=== PATIENT | female | born 1945 | race Caucasian/White ===

== ENCOUNTER 2021-04-13 15:54 | Inpatient (IN) | payer OTHER ==
[~2021-04-13] VITALS: Ht 154.9 cm; Wt 67.0 kg
[2021-04-13 16:01] VITALS: BP 137/74
[2021-04-13] MEDS ORDERED: LISINOPRIL5 MG (16:04)
[2021-04-13] MEDS ORDERED: STEGLATRO15 MG (16:05)
[2021-04-13] MEDS ORDERED: SIMVASTATIN80 MG (16:05)
[2021-04-13 17:06] LABS: HEMATOCRIT 34.9 % (37.0-47.0); HEMOGLOBIN 11.6 gm/dL (12.0-15.0); MCH 29.1 pg (26.0-34.0); MCHC 33.4 g/dL (28.0-37.0); MCV 87.4 fL (80.0-100.0); MPV 7.1 fl. (7.2-11.1); NUCLEATED RBCS 0 /100WBC; PLATELET COUNT* 631 thou/uL (150-400); RBC 3.99 mil/uL (4.20-5.00); RDW-CV 14.7 % (10.5-14.5); WBC 14.4 thou/uL (4.0-11.0)
[2021-04-13 17:13] LABS: CALCIUM 9.8 mg/dL (8.5-10.1); POTASSIUM 4.5 mmol/L (3.5-5.1)
[2021-04-13 17:20] LABS: BE -7.5 mmol/L (-2 to +3); PCO2 29.1 mmHg (35.0-45.0); pH 7.369 (7.340-7.450)
[2021-04-13 17:25] LABS: ALBUMIN 2.5 g/dL (3.4-5.0); TOTAL BILIRUBIN 0.3 mg/dL (<0.1-1.0); TOTAL PROTEIN 7.7 g/dL (6.4-8.2)
[2021-04-13 17:36] LABS: ABSOLUTE MONOCYTES 1.2 thou/uL (0.0-1.2); ABSOLUTE NEUTROPHILS 12.2 thou/uL (1.6-8.1); PLATELET ESTIMATE ADEQUATE
[2021-04-13 20:40] VITALS: BP 116/77
[2021-04-13 20:51] VITALS: BP 120/63
[2021-04-14 00:06] VITALS: BP 118/62
[2021-04-14 03:22] VITALS: BP 164/78
[2021-04-14 04:13] LABS: HEMATOCRIT 34.3 % (37.0-47.0); HEMOGLOBIN 10.9 gm/dL (12.0-15.0); MCH 28.4 pg (26.0-34.0); MCHC 31.9 g/dL (28.0-37.0); MCV 89.1 fL (80.0-100.0); MPV 7.4 fl. (7.2-11.1); RBC 3.85 mil/uL (4.20-5.00); RDW-CV 14.9 % (10.5-14.5); WBC 14.2 thou/uL (4.0-11.0)
[2021-04-14 04:26] LABS: CALCIUM 9.3 mg/dL (8.5-10.1); POTASSIUM 4.6 mmol/L (3.5-5.1)
[2021-04-14 04:30] LABS: MAGNESIUM 2.5 mg/dL (1.8-2.4); PHOSPHORUS* 4.4 mg/dL (2.5-4.9)
--- NOTE | 2021-04-14 04:58 | NUR ---
ADMIT TO ROOM 230 AT 2039. INITAL HR 150S. O2 PLACED AT 2 LITERS NC. HR DOWN TO 101, O2 SAT 90S. MED REQ IN. IVF ORDERED FOR PT. DR YEPEZ NOTIFIED OF ABOVE. ORDER TO DC IVF. JUST PRIOR TO 299. PT HAD SEVERAL EPISOIDS WHER HR WENT UP TO 150S. UPON CHECKING PT SHE WAS SITTING STRAIGHT UP IN BED. RR 38. PT STATED I CAN'T BREATH. O2 SAT 86% ON 2 LITERS. PT DIAPHORETIC AND COOL. DR YEPEZ NOTIFIED. LASIX ORDERED AND GIVEN. PT CONTINUED TO WORSEN. RAPID CALLED. DASILVA PLACED ANOTHER DOSE OF LASIX GIVEN. BIPAP PLACED ON PT. FINAL O2 AT 60% WITH 35 LITERS PER MINUTE. GOOD RESPONSE WITH LASIX. PT RESTING COMFORTABLY ON BIPAP. HR NOW 96 BPM. ORDER FOR THOROCENTESIS IN IR TODAY.
--- NOTE | 2021-04-14 07:10 | NUR ---
CHANGE OF SHIFT BEDSIDE REPORT GIVEN PATIENT SEEN AT BEDSIDE, IN BED RESTING ASSUMED PATIENT CARE
[2021-04-14 08:00] VITALS: BP 92/54
[2021-04-14 08:34] LABS: APTT 26.2 Seconds (25.0-31.3); INR 1.1; PROTIME 11.5 Seconds (9.20-11.50)
[2021-04-14 12:00] VITALS: BP 104/44
[2021-04-14 15:37] VITALS: BP 110/55
[2021-04-14 17:23] LABS: TOTAL PROTEIN 7.1 g/dL (6.4-8.2)
[2021-04-14 17:29] LABS: BF RBC 12285 /mm3; TOTAL CELL COUNT 4991 /mm3
[2021-04-14 17:54] LABS: CLARITY HAZY; TOTAL VOLUME 1560 ml
[2021-04-14 18:09] LABS: BF LYMPHOCYTES 28 %; BF POLYS 72 %; BF TISSUE 14 /100 WBC
[2021-04-14 18:11] LABS: SOURCE THORACENTESIS
[2021-04-14 20:00] VITALS: BP 123/73
[2021-04-15] VITALS (7 sets, daily range): BP systolic 90–130; BP diastolic 53–73
[2021-04-15 05:17] LABS: HEMATOCRIT 28.1 % (37.0-47.0); HEMOGLOBIN 9.4 gm/dL (12.0-15.0); MCH 29.1 pg (26.0-34.0); MCHC 33.4 g/dL (28.0-37.0); MCV 87.2 fL (80.0-100.0); MPV 7.2 fl. (7.2-11.1); RBC 3.22 mil/uL (4.20-5.00); RDW-CV 14.7 % (10.5-14.5); WBC 6.4 thou/uL (4.0-11.0)
[2021-04-15 05:22] LABS: CALCIUM 8.3 mg/dL (8.5-10.1); CREATININE 0.7 mg/dL (0.6-1.3); POTASSIUM 3.5 mmol/L (3.5-5.1)
--- NOTE | 2021-04-15 07:15 | NUR ---
CHANGE OF SHIFT BEDSIDE REPORT GIVEN PATIENT SEEN AT BEDSIDE, IN BED RESTING ASSUMED PATIENT CARE
--- NOTE | 2021-04-15 11:43 | EKG ---
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
--- NOTE | 2021-04-15 11:45 | EKG ---
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 : 1945 Requested By: Clarence Saba Order Number: [id number] Reading MD: Lamont Bell Measurements Intervals [place] Rate: 103 P: 20 AL: 149 QRS: -15 QRSD: 97 T: 31 QT: 342 QTc: 448 Interpretive Statements Sinus tachycardia Borderline left axis deviation Delayed R wave progression Compared to ECG 04/13/2021 17:06:19 No significant changes noted Electronically Signed On 04-15-2021 11:45:16 CDT by Lamont Bell [email or web address] <ELECTRONICALLY SIGNED> By: Lamont Bell MD, FACC 04/15/21 1145 08 08 Lamont Bell MD, [facility] /EPI
--- NOTE | 2021-04-15 20:00 | NUR ---
RECEIVED REPORT AND ASSUMED CARE OF PT, ASSESSMENT COMPLETED. STATES FEELING MUCH BETTER. PT PLEASANT, DYSPNEA WITH CONSERVATION. O2 ON AT 4L/NC, HOB ELEVATED. TELEMETRY ON SHOWING ST. WILL CONT TO MONITOR AND ASSIST NEEDED.
[2021-04-16 04:10] VITALS: BP 99/66
[2021-04-16 04:55] LABS: HEMATOCRIT 30.3 % (37.0-47.0); MCH 28.5 pg (26.0-34.0); MCHC 32.9 g/dL (28.0-37.0); MCV 86.7 fL (80.0-100.0); MPV 7.1 fl. (7.2-11.1); RBC 3.5 mil/uL (4.20-5.00); RDW-CV 14.4 % (10.5-14.5)
[2021-04-16 05:07] LABS: CALCIUM 8.9 mg/dL (8.5-10.1); CREATININE 0.7 mg/dL (0.6-1.3); POTASSIUM 3.9 mmol/L (3.5-5.1)
--- NOTE | 2021-04-16 06:00 | NUR ---
SLEPT WELL TONIGHT. MOVING SELF IN BED FOR COMFORT. OCC NON-PROD COUGH. HOB ELEVATED, O2 ON. TELEMETRY SHOWING SR WHEN SLEEPING. NO CHANGE IN ASSESSMENT. HS GOALS OF REST AND SAFETY ACHIEVED. HOURLY ROUNDING OBSERVED.
[2021-04-16 08:00] VITALS: BP 129/72
[2021-04-16 12:00] VITALS: BP 124/61
--- NOTE | 2021-04-16 12:49 | NUR ---
CM ASSESSMENT: PT A&O, INDEPENDENT WITH ADL'S, ACTIVE AND DRIVES. PT RESIDES AT HOME ALONE. PT HAS BEEN USING A CANE FOR MOBILITY RECENTLY DUE TO WEAKNESS, BUT NORMALLY DOES NOT USE ANY DME. PT DOES NOT HAVE HOME OXYGEN. PT HAS 0 HX OF HH OR SNF. PT MAY NEED HOME OXYGEN AT D/C SHE IS CURRENTLY ON 4L O2, AND MAY ALSO BENEFIT FROM HH. CM WILL REMAIN AVAILABLE TO ASSIST AND FOLLOW NEEDED.
[2021-04-16 13:07] LABS: BODY FLUID LDH 175 IU/L (())
[2021-04-16 16:00] VITALS: BP 126/66
[2021-04-16 16:06] LABS: BODY FLUID PH 7.5 (Not Estab.)
[2021-04-16 20:00] VITALS: BP 111/69
--- NOTE | 2021-04-16 20:00 | NUR ---
RECEIVED REPORT AND ASSUMED CARE OF PT, ASSESSMENT COMPLETED. O2 ON AT 4L/NC, DISCUSSED WEANING DOWN TO ADVANCE TOWARDS DISCHARGE, VERY ANXIOUS ABOUT THIS. DISCUSSED DR PLAN OF DIURESING AND RECHECK CT. TELEMETRY ON SHOWING ST. WILL CONT TO MONITOR AND ASSIST NEEDED.
[2021-04-17] VITALS (7 sets, daily range): BP systolic 100–122; BP diastolic 52–68
[2021-04-17 04:39] LABS: ABSOLUTE BASOPHILS 0.1 thou/uL (0.0-0.2); ABSOLUTE EOSINOPHILS 0.1 thou/uL (0.0-0.7); ABSOLUTE LYMPHOCYTES 1.3 thou/uL (0.8-5.3); ABSOLUTE MONOCYTES 0.5 thou/uL (0.0-1.2); BASOPHILS 1.3 %; EOSINOPHILS 1.4 %; HEMATOCRIT 31.8 % (37.0-47.0); HEMOGLOBIN 10.4 gm/dL (12.0-15.0); LYMPHOCYTES 21.9 %; MCH 28.4 pg (26.0-34.0); MCHC 32.6 g/dL (28.0-37.0); MCV 87.4 fL (80.0-100.0); MONOCYTES 8.1 %; MPV 7.2 fl. (7.2-11.1); NUCLEATED RBCS 0 /100WBC; PLATELET COUNT* 509 thou/uL (150-400); POLYS 67.3 %; RBC 3.64 mil/uL (4.20-5.00); WBC 5.9 thou/uL (4.0-11.0)
[2021-04-17 05:01] LABS: CALCIUM 9.1 mg/dL (8.5-10.1); CREATININE 0.7 mg/dL (0.6-1.3); MAGNESIUM 2.5 mg/dL (1.8-2.4); POTASSIUM 3.8 mmol/L (3.5-5.1); TOTAL BILIRUBIN 0.1 mg/dL (<0.1-1.0); TOTAL PROTEIN 6.9 g/dL (6.4-8.2)
--- NOTE | 2021-04-17 06:21 | NUR ---
DIFFICULTY KEEPING BIPAP ON TONIGHT BUT DID WELL WITH IT WHEN SLEEPING. O2 DECREASED TO 28% THEN WHEN ON NC 2L. NO SOA NOTED OR RESTLESSNESS. TELEMETRY CONT TO SHOW SR. NO CHANGE IN ASSESSMENT. HS GOALS OF REST AND SAFETY ACHIEVED. HOURLY ROUNDING OBSERVED.
--- NOTE | 2021-04-17 07:25 | NUR ---
CHANGE OF SHIFT BEDSIDE REPORT GIVEN PATIENT SEEN AT BEDSIDE, IN BED RESTING ASSUMED PATIEWNT CARE
--- NOTE | 2021-04-17 13:10 | 2DMMODE ---
[place] [address] 2 D/M-MODE ECHOCARDIOGRAM Name: SWATHI VALDES Room: [address] IN [facility]#: [id number] Admission: 04/13/21 Attend Phys: Clarence Saba Discharge: Date of : 45 Date of Service: 04/16/21 1303 Report #: [id number] THIS REPORT FOR: cc: Liz Angelo MD, Katrina MD Holkins, John M. MD [facility] ~ APPROVED REPORT Study performed: 04/16/2021 11:11:30 EXAM: Comprehensive 2D, Doppler, and color-flow Echocardiogram Patient Location: In-Patient Room #: [facility] Status: routine BSA: 1.73 HR: 91 bpm BP: 99/66 mmHg Rhythm: NSR Other Information Study Quality: Good Indications Pericardial Effusion 2D Dimensions IVSd: 8.76 (7-11mm) LVOT Diam: 19.35 (18-24mm) LVDd: 38.19 mm PWd: 8.82 (7-11mm) Ascending Ao: 32.67 (22-36mm) LVDs: 25.69 (25-40mm) Aortic Root: 28.77 mm Volumes Left Atrial Volume (Systole) LA ESV Index: 25.10 mL/m2 Aortic Valve AoV Peak Lazaro.: 1.42 m/s AO Peak Gr.: 8.04 mmHg LVOT Max P.22 mmHg AO Mean Gr.: 4.62 mmHg LVOT Mean P.28 mmHg LVOT Max V: 1.25 m/s AO V2 VTI: 22.72 cm LVOT Mean V: 0.67 m/s HILLARY (VTI): 2.87 cm2 LVOT V1 VTI: 22.16 [place] [address] 2 D/M-MODE ECHOCARDIOGRAM Name: SWATHI VALDES Room: [address] IN ..#: [id number] Admission: 04/13/21 Attend Phys: Clarence Saba Discharge: Date of : 45 Date of Service: 04/16/21 1303 Report #: [id number] Mitral Valve E/A Ratio: 1.11 MV Decel. Time: 155.40 ms MV E Max Lazaro.: 0.92 m/s MV PHT: 45.06 ms MVA (PHT): 4.88 cm2 TDI E/Lateral E': 10.22 E/Medial E': 8.36 Medial E' Lazaro.: 0.11 m/s Lateral E' Lazaro.: 0.09 m/s Pulmonary Valve PV Peak Lazaro.: 0.87 m/s PV Peak Gr.: 3.03 mmHg Tricuspid Valve RAP Estimate: 5.00 mmHg TR Peak Gr.: 23.50 mmHg RVSP: 28.00 mmHg PA Pressure: 28.00 mmHg Left Ventricle The left ventricle is normal size. There is normal LV segmental wall motion. There is normal left ventricular wall thickness. Left ventricular systolic function is normal. The left ventricular ejection fraction is within the normal range. LVEF is 65%. Grade I - abnormal relaxation pattern. Right Ventricle The right ventricle is normal size. The right ventricular systolic function is normal. Atria The left atrium size is normal. The right atrium size is normal. Aortic Valve Mild aortic valve sclerosis. No aortic regurgitation is present. There is no aortic valvular stenosis. Mitral Valve The mitral valve is normal in structure. Trace mitral regurgitation. No evidence of mitral valve stenosis. Tricuspid Valve The tricuspid valve is normal in structure. Mild tricuspid regurgitation. [place] [address] 2 D/M-MODE ECHOCARDIOGRAM Name: SWATHI VALDES Room: [address] IN [facility]#: [id number] Admission: 04/13/21 Attend Phys: Clarence Saba Discharge: Date of : 45 Date of Service: 04/16/21 1303 Report #: [id number] Pulmonic Valve The pulmonary valve is normal in structure. Trace pulmonic regurgitation. Great Vessels The aortic root is normal in size. IVC is normal in size and collapses >50% with inspiration. Pericardium There is no pericardial effusion. <Conclusion> The left ventricle is normal size. There is normal left ventricular wall thickness. Left ventricular systolic function is normal. The left ventricular ejection fraction is within the normal range. LVEF is 65%. Grade I - abnormal relaxation pattern. The right ventricle is normal size. The left atrium size is normal. Mild aortic valve sclerosis. No aortic regurgitation is present. There is no aortic valvular stenosis. The mitral valve is normal in structure. Trace mitral regurgitation. The tricuspid valve is normal in structure. Mild tricuspid regurgitation. No pulmonary hypertension. IVC is normal in size and collapses >50% with inspiration. There is no pericardial effusion. There is normal LV segmental wall motion. <ELECTRONICALLY SIGNED> By: Julio Mckeon MD, FACC 04/16/21 1303 130 1303 Julio Mckeon MD, FACC /INF
--- NOTE | 2021-04-17 13:47 | NUR ---
PLAN OF CARE: PHYSICIAN INFORMS OF PLAN FOR PT TO REMAIN INPT FOR 24-48 ADDITIONAL HRS. PT REMAINS TELE STATUS, AND ON 4L O2. PT/OT EVALS PENDING, AND WILL ASSIST IN DETERMINING PT'S MOBILITY AND D/C PLANNING NEEDS. AT THIS TIME IT APPEARS IF PT MAY BENEFIT FROM HH AT D/C. PT MAY ALSO NEED HOME OXYGEN SHE DID NOT HAVE ANY PRIOR TO ADMIT. CM WILL REMAIN AVAILABLE TO ASSIST AND FOLLOW NEEDED.
[2021-04-17 15:07] LABS: CALCIUM 8.9 mg/dL (8.5-10.1); CREATININE 0.8 mg/dL (0.6-1.3); POTASSIUM 4.2 mmol/L (3.5-5.1)
[2021-04-17 16:45] LABS: BF RBC 18312 /mm3; TOTAL CELL COUNT 2466 /mm3
[2021-04-17 16:48] LABS: TOTAL VOLUME 750 ml
[2021-04-17 16:49] LABS: CLARITY HAZY
[2021-04-17 17:44] LABS: BF LYMPHOCYTES 43 %; BF MONOCYTES 2 %; BF POLYS 55 %; BF TISSUE 28 /100 WBC
[2021-04-17 17:46] LABS: SOURCE PLEURAL FLUID
--- NOTE | 2021-04-18 02:35 | NUR ---
PT ALERT ORIENTED. UP TO BR WITH CANE AND ASSIST OF ONE. RN LPN LVN TRACING SR/ST. INITALLY ON RA. MN O2 SAT 85% O2 ON AT 2 LITERS NC. CURRENTLY SATING 95%
[2021-04-18 04:00] VITALS: BP 90/53
[2021-04-18 04:14] LABS: ABSOLUTE BASOPHILS 0.1 thou/uL (0.0-0.2); ABSOLUTE EOSINOPHILS 0.1 thou/uL (0.0-0.7); ABSOLUTE LYMPHOCYTES 1.2 thou/uL (0.8-5.3); ABSOLUTE MONOCYTES 0.5 thou/uL (0.0-1.2); EOSINOPHILS 1.5 %; HEMATOCRIT 31.1 % (37.0-47.0); HEMOGLOBIN 10.4 gm/dL (12.0-15.0); LYMPHOCYTES 21.1 %; MCH 28.5 pg (26.0-34.0); MCHC 33.5 g/dL (28.0-37.0); MCV 85.1 fL (80.0-100.0); MONOCYTES 8.3 %; MPV 6.9 fl. (7.2-11.1); NUCLEATED RBCS 0 /100WBC; PLATELET COUNT* 511 thou/uL (150-400); POLYS 68.1 %; RBC 3.65 mil/uL (4.20-5.00); RDW-CV 15.1 % (10.5-14.5); WBC 5.9 thou/uL (4.0-11.0)
[2021-04-18 04:33] LABS: ALBUMIN 1.9 g/dL (3.4-5.0); CALCIUM 8.8 mg/dL (8.5-10.1); CREATININE 0.7 mg/dL (0.6-1.3); POTASSIUM 3.9 mmol/L (3.5-5.1); TOTAL BILIRUBIN 0.2 mg/dL (<0.1-1.0); TOTAL PROTEIN 6.5 g/dL (6.4-8.2)
[2021-04-18 08:00] VITALS: BP 104/59
[2021-04-18 11:11] LABS: SOURCE THORACENTESIS
[2021-04-18 11:50] VITALS: BP 110/63
--- NOTE | 2021-04-18 12:28 | NUR ---
THIS TECHNICAL RECRUITER AGREES WITH DOCUMENTED EVALUATION AND RECOMMENDATIONS BY DIANA FATIMA FOR THIS DAY. RANDALL WEIRT
--- NOTE | 2021-04-18 15:43 | NUR ---
PLAN OF CARE: PHYSICIAN INFORMS OF PLAN TO PREPARE PT FOR D/C IN 1-2 DAYS. P.T. RECOMMENDING INPT ARU FOR PT. INPT ARU CONSULTED AND PENDING ACCEPTANCE. IF PT DOES NOT GO TO INPT ARU AND GOES HOME PT WILL NEED HH AND POSSIBLY HOME OXYGEN. CM WILL REMAIN AVAILABLE TO ASSIST AND FOLLOW NEEDED.
[2021-04-18 16:00] VITALS: BP 117/74
[2021-04-18 16:07] LABS: BODY FLUID LDH 161 IU/L (()); BODY FLUID PROTEIN 3.7 g/dL (())
[2021-04-18 17:22] LABS: CALCIUM 9.3 mg/dL (8.5-10.1); CREATININE 0.7 mg/dL (0.6-1.3); MAGNESIUM 2.6 mg/dL (1.8-2.4); POTASSIUM 4.8 mmol/L (3.5-5.1)
--- NOTE | 2021-04-18 18:13 | NUR ---
YARN WORKER TRACKING SR TO ST. 02 ON 2L PER NC, SOA NOTED WITH ACTIVITY. NO COMPLAINTS OF PAIN, NAUSEA AT THIS TIME. ASSESSMENT UNCHANGED. HOB ELEVATED, CALL LIGHT WITHIN REACH, WILL MONITOR.
[2021-04-18 20:10] VITALS: BP 107/57
[2021-04-18 23:40] VITALS: BP 115/70
[2021-04-19 07:54] LABS: HEMATOCRIT 32.4 % (37.0-47.0); HEMOGLOBIN 10.9 gm/dL (12.0-15.0); MCH 28.7 pg (26.0-34.0); MCHC 33.5 g/dL (28.0-37.0); MCV 85.7 fL (80.0-100.0); MPV 7.2 fl. (7.2-11.1); NUCLEATED RBCS 0 /100WBC; PLATELET COUNT* 532 thou/uL (150-400); RBC 3.78 mil/uL (4.20-5.00); RDW-CV 14.8 % (10.5-14.5); WBC 6.8 thou/uL (4.0-11.0)
[2021-04-19 08:00] VITALS: BP 150/71
[2021-04-19 08:45] LABS: CREATININE 0.7 mg/dL (0.6-1.3); POTASSIUM 4.5 mmol/L (3.5-5.1)
[2021-04-19 08:46] LABS: ALBUMIN 2.6 g/dL (3.4-5.0); CALCIUM 9.2 mg/dL (8.5-10.1); TOTAL BILIRUBIN 0.3 mg/dL (<0.1-1.0); TOTAL PROTEIN 7.3 g/dL (6.4-8.2)
[2021-04-19 08:54] LABS: PREALBUMIN 14.1 mg/dL (18.0-35.7)
[2021-04-19 09:08] LABS: ANTI-DNA SCREEN <1 IU/mL (0-9); ANTI-RNP <0.2 AI (0.0-0.9); ANTI-SSA <0.2 AI (0.0-0.9); ANTIJO-I AB <0.2 AI (0.0-0.9)
[2021-04-19 10:18] LABS: ABSOLUTE LYMPHOCYTES 0.3 thou/uL (0.8-5.3); ABSOLUTE MONOCYTES 0.1 thou/uL (0.0-1.2); ABSOLUTE NEUTROPHILS 6.3 thou/uL (1.6-8.1); PLATELET ESTIMATE INCREASED
[2021-04-19 10:19] LABS: ANISOCYTOSIS 1+; POIKILOCYTOSIS 1+
[2021-04-19 11:40] VITALS: BP 114/66
--- NOTE | 2021-04-19 12:53 | NUR ---
PLAN OF CARE: PHYSICIAN INFORMS OF PLAN FOR PT TO REMAIN INPT FOR 24-48 MORE HRS. PT REMAIN TELE STATUS AT THIS TIME. PT/OT EVALS COMPLETED AND RECOMMENDING INPT ARU. INPT REHAB CONSULT PENDING. PT NOW ON 2L O2. CM WILL REMAIN AVAILABLE TO ASSIST AND FOLLOW NEEDED.
--- NOTE | 2021-04-19 13:25 | NUR ---
THIS FISHING VESSEL MATE AGREES WITH DOCUMENTED TREATMENT NOTE BY DIANA FATIMA FOR THIS DAY. RANDALL WEIRT
[2021-04-19 15:36] VITALS: BP 132/69
[2021-04-19 15:52] LABS: BF RBC 4815 /mm3; CLARITY CLEAR; SOURCE PLEURAL FLUID; TOTAL CELL COUNT 1688 /mm3; TOTAL VOLUME 600 ml
[2021-04-19 16:12] LABS: BF LYMPHOCYTES 96 %; BF POLYS 4 %; BF TISSUE 34 /100 WBC
--- NOTE | 2021-04-19 19:41 | NUR ---
I ASSUMED CARE OF THE PATIENT AT 0700. SHE IS ALERT AND ORIENTED X4 AND IS UP WITH ASSIST OF ONE AND A WALKER. BED IS IN THE LOW LOCKED POSITION AND CALL LIGHT IS IN REACH. HOURLY ROUNDING IS COMPLETED AND PATIENT NEEDS ARE MET. PAIN IS DENIED. SHE IS ON 2LNC AND SATURATION IS MAINTAINED. LUNG SOUNDS ARE IMPROVING. STRICT I&O CHARTED BY TECH. WILL CONTINUE TO MONITOR.
[2021-04-19 19:45] VITALS: BP 129/64
[2021-04-20] VITALS: BP 104/62
[2021-04-20 04:00] VITALS: BP 100/56
--- NOTE | 2021-04-20 05:30 | NUR ---
PT SLEPT MOST OF SHIFT. ASSESSMENT DOCUMENTED. MEDS GIVEN PER E-MAR. IV PATENT. NO REPORTS OF PAIN. BANDAID ON BACK REMAINED CDI. DASILVA TO DEPENDANT DRAINAGE. FALL PRECAUTIONS IN PLACE. PT ABLE TO MAKE NEEDS KNOWN. WILL CONTINUE WITH PLAN OF CARE.
[2021-04-20 05:46] LABS: ABSOLUTE LYMPHOCYTES 1.5 thou/uL (0.8-5.3); ABSOLUTE MONOCYTES 0.6 thou/uL (0.0-1.2); ABSOLUTE NEUTROPHILS 6.2 thou/uL (1.6-8.1); BASOPHILS 0.4 %; EOSINOPHILS 0.6 %; HEMATOCRIT 29.5 % (37.0-47.0); HEMOGLOBIN 10.1 gm/dL (12.0-15.0); LYMPHOCYTES 18.3 %; MCH 28.9 pg (26.0-34.0); MCHC 34.3 g/dL (28.0-37.0); MCV 84.3 fL (80.0-100.0); MONOCYTES 7.2 %; MPV 7.2 fl. (7.2-11.1); NUCLEATED RBCS 0 /100WBC; PLATELET COUNT* 507 thou/uL (150-400); POLYS 73.5 %; RDW-CV 15.2 % (10.5-14.5); WBC 8.4 thou/uL (4.0-11.0)
[2021-04-20 05:59] LABS: PREALBUMIN 15.3 mg/dL (18.0-35.7)
[2021-04-20 06:13] LABS: ALBUMIN 2.8 g/dL (3.4-5.0); CALCIUM 9.1 mg/dL (8.5-10.1); CREATININE 0.8 mg/dL (0.6-1.3); POTASSIUM 3.6 mmol/L (3.5-5.1); TOTAL BILIRUBIN 0.3 mg/dL (<0.1-1.0); TOTAL PROTEIN 7.1 g/dL (6.4-8.2)
[2021-04-20 08:00] VITALS: BP 130/67
[2021-04-20 11:30] VITALS: BP 121/65
--- NOTE | 2021-04-20 12:07 | PATH ---
[address] [address] PATHOLOGY RPT PROCEDURE Name: SWATHI VALDES Room: [address] IN [facility]#: [id number] Admission: 04/13/21 Date of : 45 Discharge: Report #: [id number] Path Case #: [id number] Note L[facility] Accession Number: [id number] TESTS RESULT FLAG UNITS REF RANGE LAB Clinician Provided Cytology Information No. of containers..01 Other (Miscellaneous) Source: RIGHT PLEURAL DIAGNOSIS: 01 RIGHT PLEURAL INCONCLUSIVE. THIS INTERPRETATION INCLUDES EVALUATION OF A CELL BLOCK. COMMENT, FEW ATYPICAL CELLS ARE SEEN NOT DIAGNOSTIC FAVOR REACTIVE MESOTHELIAL CELLS. Signed out by: 01 Fercho Bonilla MD, Pathologist NPI- [id number] Performed by: Shakira Douglas, Conformal Pad Former ([facility]) Gross description: 01 31ML, CLOUDY ORANGE, 1 TP 1 PAWEL /GRICELDA 04/19/2021 0407 Local FLAG LEGEND: L-Low Normal,H-High Normal,LL-Alert Low,HH-Alert High <-Panic Low,>-Panic High,A-Abnormal,AA-Critical Abnormal Performed at: [address] [place] [address] Fercho Bonilla MD, Specimen Comment: A courtesy copy of this report has been sent to [phone] Specimen Comment: [phone] Specimen Comment: Report sent to / DR. ESPINOZA Performed at: [address], [place], [place] [id number] MD Fercho Bonilla MD Phone: [phone]
--- NOTE | 2021-04-20 12:44 | NUR ---
Nutrition: screen for LOS. No intake records, nsg reports pt doing well with meals with good appetite. Wt down some from admit, O>I past week. S/p thorascentesis. Albumin 2.8, BUN 24. Meds reviewed. Assessed at low nutrition risk at this time.
--- NOTE | 2021-04-20 13:36 | NUR ---
PLAN OF CARE: PHYSICIAN INFORMS THAT PT WILL LIKELY REMAIN INPT THROUGH THE WEEKEND. PLAN FOR PT TO TRANSFER TO INPT ARU PENDING PT BEING MEDICALLY STABLE AND, PENDING INSURANCE AUTH. PULM INFORMS OF PLAN FOR PT TO HAVE REPEAT SCAN AND POSSIBLE THORACENTESIS FRIDAY. PT REMAINS ON 2L O2 AND DID NOT HAVE HOME OXYGEN PRIOR TO ADMIT. P.T. WILL NEED TO CONTINUE TO WORK WITH PT THROUGH THE WEEKEND TO ASSIST WITH AUTH AND MAINTAIN PT'S MOBILITY AND STRENGTH. CM WILL REMAIN AVAILABLE TO ASSIST AND FOLLOW NEEDED.
[2021-04-20 14:07] LABS: BODY FLUID LDH 130 IU/L (()); BODY FLUID PROTEIN 4.6 g/dL (())
[2021-04-20 15:37] VITALS: BP 131/80
[2021-04-20 17:07] LABS: BODY FLUID PH 7.5 (Not Estab.)
[2021-04-20 20:00] VITALS: BP 127/64
[2021-04-21 04:00] VITALS: BP 112/56; BP 118/61
[2021-04-21 08:00] VITALS: BP 137/71
[2021-04-21 08:26] LABS: ABSOLUTE BASOPHILS 0.1 thou/uL (0.0-0.2); ABSOLUTE EOSINOPHILS 0.1 thou/uL (0.0-0.7); ABSOLUTE LYMPHOCYTES 2.2 thou/uL (0.8-5.3); ABSOLUTE MONOCYTES 0.6 thou/uL (0.0-1.2); ABSOLUTE NEUTROPHILS 4.9 thou/uL (1.6-8.1); BASOPHILS 0.8 %; HEMATOCRIT 33.3 % (37.0-47.0); HEMOGLOBIN 11.1 gm/dL (12.0-15.0); LYMPHOCYTES 27.6 %; MCH 28.3 pg (26.0-34.0); MCHC 33.2 g/dL (28.0-37.0); MCV 85.2 fL (80.0-100.0); MONOCYTES 7.5 %; MPV 7.1 fl. (7.2-11.1); NUCLEATED RBCS 0 /100WBC; PLATELET COUNT* 572 thou/uL (150-400); POLYS 63.1 %; RBC 3.91 mil/uL (4.20-5.00); RDW-CV 14.8 % (10.5-14.5); WBC 7.8 thou/uL (4.0-11.0)
[2021-04-21 08:37] LABS: ALBUMIN 3.4 g/dL (3.4-5.0); CALCIUM 9.7 mg/dL (8.5-10.1); CREATININE 0.9 mg/dL (0.6-1.3); MAGNESIUM 2.6 mg/dL (1.8-2.4); TOTAL BILIRUBIN 0.3 mg/dL (<0.1-1.0); TOTAL PROTEIN 7.8 g/dL (6.4-8.2)
[2021-04-21 12:00] VITALS: BP 117/65
[2021-04-21 15:51] LABS: CALCIUM 9.5 mg/dL (8.5-10.1); POTASSIUM 4.8 mmol/L (3.5-5.1)
[2021-04-21 16:00] VITALS: BP 139/78
[2021-04-21 20:00] VITALS: BP 140/68
[2021-04-22] VITALS: BP 119/78
[2021-04-22 04:00] VITALS: BP 124/71
[2021-04-22 07:29] LABS: HEMATOCRIT 32.4 % (37.0-47.0); HEMOGLOBIN 10.9 gm/dL (12.0-15.0); MCH 28.4 pg (26.0-34.0); MCHC 33.5 g/dL (28.0-37.0); MCV 84.7 fL (80.0-100.0); MPV 6.9 fl. (7.2-11.1); RBC 3.83 mil/uL (4.20-5.00); RDW-CV 15.1 % (10.5-14.5); WBC 7.4 thou/uL (4.0-11.0)
[2021-04-22 07:48] LABS: CALCIUM 9.5 mg/dL (8.5-10.1); CREATININE 0.8 mg/dL (0.6-1.3); POTASSIUM 4.1 mmol/L (3.5-5.1)
[2021-04-22 08:00] VITALS: BP 135/67
[2021-04-22 12:00] VITALS: BP 134/77
[2021-04-22 16:00] VITALS: BP 138/80
[2021-04-22 20:00] VITALS: BP 151/79
[2021-04-23] VITALS (7 sets, daily range): BP systolic 117–161; BP diastolic 59–78
[2021-04-23 04:30] LABS: ABSOLUTE BASOPHILS 0.1 thou/uL (0.0-0.2); ABSOLUTE EOSINOPHILS 0.2 thou/uL (0.0-0.7); ABSOLUTE LYMPHOCYTES 2.3 thou/uL (0.8-5.3); ABSOLUTE MONOCYTES 0.7 thou/uL (0.0-1.2); ABSOLUTE NEUTROPHILS 5.9 thou/uL (1.6-8.1); BASOPHILS 0.8 %; EOSINOPHILS 1.7 %; HEMOGLOBIN 10.9 gm/dL (12.0-15.0); LYMPHOCYTES 25.3 %; MCH 28.7 pg (26.0-34.0); MCHC 33.1 g/dL (28.0-37.0); MCV 86.6 fL (80.0-100.0); MONOCYTES 7.5 %; NUCLEATED RBCS 0 /100WBC; PLATELET COUNT* 497 thou/uL (150-400); POLYS 64.7 %; RBC 3.81 mil/uL (4.20-5.00); RDW-CV 14.7 % (10.5-14.5); WBC 9.1 thou/uL (4.0-11.0)
[2021-04-23 04:31] LABS: CALCIUM 9.3 mg/dL (8.5-10.1); CREATININE 0.9 mg/dL (0.6-1.3); PHOSPHORUS* 3.7 mg/dL (2.5-4.9)
[2021-04-23 04:33] LABS: APTT 22.2 Seconds (25.0-31.3); PROTIME 10.9 Seconds (9.20-11.50)
--- NOTE | 2021-04-23 04:35 | NUR ---
PT NPO SINCE MN.
[2021-04-23 04:42] LABS: CALCIUM 9.3 mg/dL (8.5-10.1); MAGNESIUM 2.5 mg/dL (1.8-2.4); TOTAL BILIRUBIN 0.2 mg/dL (<0.1-1.0); TOTAL PROTEIN 6.8 g/dL (6.4-8.2)
--- NOTE | 2021-04-23 13:26 | NUR ---
PLAN OF CARE: PHYSICIAN INFORMS THAT PT WILL HAVE BRONCH DONE TODAY. PLAN FOR PT TO D/C TO INPT REHAB WHEN MEDICALLY STABLE AND PENDING INSURANCE AUTH. PT WILL NEED PT/OT F/U TO ASSIST IN DETERMINING PT'S MOBILITY AND APPROVAL FOR INPT REHAB. CM WILL REMAIN AVAILABLE TO ASSIST AND FOLLOW NEEDED.
--- NOTE | 2021-04-23 15:07 | PATH ---
[address] [address] PATHOLOGY RPT PROCEDURE Name: SWATHI VALDES Room: [address] IN [facility]#: [id number] Admission: 04/13/21 Date of : 45 Discharge: Report #: [id number] Path Case #: [id number] Note LCA Accession Number: [id number] TESTS RESULT FLAG UNITS REF RANGE LAB Clinician Provided Cytology Information No. of containers..01 Other (Miscellaneous) Source: LEFT PLERUAL EFF DIAGNOSIS: 01 LEFT PLERUAL EFF NEGATIVE FOR MALIGNANT CELLS. REACTIVE MESOTHELIAL CELLS ARE PRESENT. THIS INTERPRETATION INCLUDES EVALUATION OF A CELL BLOCK. COMMENT, FEW INFLAMMATORY CELLS PRESENT. Signed out by: 01 Fercho Bonilla MD, Pathologist NPI- [id number] Performed by: Joaquin Prescott, End User Consultant ([facility]) Gross description: 01 35ML, CLOUDY MICHI, 1 TP 1CB /LCS 04/16/2021 2358 Local FLAG LEGEND: L-Low Normal,H-High Normal,LL-Alert Low,HH-Alert High <-Panic Low,>-Panic High,A-Abnormal,AA-Critical Abnormal Performed at: [address] [place] [address] Fercho Bonilla MD, Specimen Comment: A courtesy copy of this report has been sent to [phone] Specimen Comment: [phone] Specimen Comment: Report sent to / DR MENDIOLA Specimen Comment: A duplicate report has been generated due to demographic updates. Performed at: [address], [place], [place] [id number] MD Fercho Bonilla MD Phone: [phone]
[2021-04-23 15:14] LABS: CLARITY ND; TOTAL VOLUME ND ml
[2021-04-23 15:15] LABS: BF EOSINOPHILS ND %; BF LYMPHOCYTES ND %; BF MONOCYTES ND %; BF OTHER ND; BF POLYS ND %; BF RBC <1000 /mm3; BF TISSUE ND /100 WBC; BODY FLUID BANDS ND %; CLARITY ND; TOTAL CELL COUNT 35 /mm3; TOTAL CELL COUNT 74 /mm3; TOTAL VOLUME ND ml
[2021-04-23 15:16] LABS: BF EOSINOPHILS ND %; BF LYMPHOCYTES 31 %; BF MONOCYTES 12 %; BF OTHER ND; BF POLYS 57 %; BF TISSUE ND /100 WBC; BODY FLUID BANDS ND %
--- NOTE | 2021-04-23 19:03 | NUR ---
PATIENT HAS REMAINED A&OX4, PLEASANT AND COOPERATIVE WITH CARES THIS SHIFT. PATIENT HAD BRONCHOSCOPY TODAY AND HAS DONE WELL POST PROCEDURE AND IS ALREADY WEANTED OFF 2L O2. URINARY CATHETER IN PLACE TO DD, YELLOW URINE IN COLLECTION BAG. PATIENT DOES WELL GETTING UP WITH STANDBY ASSIST. MEDICATIONS ADMINISTERED ORDERED. CALL LIGHT AND FREQUENTLY USED ITEMS WITHIN REACH.
--- NOTE | 2021-04-23 20:33 | OP ---
[facility] [address] [place] [address] OPERATIVE REPORT Name: SWATHI VALDES Room: [address] IN M.R.#: [id number] Admission: 04/13/21 Attend Phys: Kvng Sutton Discharge: Date of : 45 Report #: [id number] THIS REPORT FOR: cc: Liz Angelo MD, Katrina MD Pervez, Adeel MD ~ DOC #: [id number] Bernard Neal MD DATE OF SURGERY: 04/23/2021 INDICATIONS FOR PROCEDURE: Pulmonary infiltrates and pleural effusions. POSTOPERATIVE DIAGNOSIS: Pulmonary infiltrates and pleural effusions. There are clear secretions present throughout the airways. There is some evidence of external compression in lower lobes. No endobronchial lesions identified. CONSENT: Informed consent was obtained from the patient. SEDATION: The patient was administered 1 mg of Versed in addition to 100 mcg of fentanyl in addition to various amounts of local anesthetic solution instilled in the airways as described below. DESCRIPTION OF PROCEDURE: Informed consent was obtained and the patient was transferred to the bronchoscopy suite where the respiratory therapist proceeded to repairing the upper airway with local anesthetic solution using standard protocol. Both nostrils were noted to be too narrow to pass 2 Q-tips, only one Q-tip could be passed; therefore, elected to proceed with this procedure through the patient's mouth. The patient was sedated as above and then a mouthguard was placed and bronchoscope was advanced through the mouth to visualize the vocal cords without difficulty. I instilled 8 mL of 4% Xylocaine onto the vocal cords in addition to 3 mL of 2% Xylocaine. I then advanced the bronchoscope, past the vocal cords, which looked unremarkable and proceeded to examining the entire right and left bronchial tree. Another 3 mL each of 2% Xylocaine was instilled in the trachea, right upper lobe bronchus and left upper lobe bronchus. There were clear and some white secretions present throughout. There was some compression noted in the bilateral lower lobes, more on the left lower lobe due to external compression. There was minor evidence of external compression in the right upper lobe as well. I did not identify any endobronchial lesions. We proceeded with bronchial washings. These were first performed from the left lower lobe and we got back a return of around 25 mL. We subsequently also performed bronchial washings from the right lower lobe. I got back a return of around 18 mL, a total of 80 mL of normal saline was instilled. The specimens collected have been sent to the laboratory [place] [address] OPERATIVE REPORT Name: CHRISTI VALDESE Edvin Room: [address]#: [id number] Admission: 04/13/21 Attend Phys: Kvng Sutton Discharge: Date of : 45 Report #: [id number] up, the patient remained stable throughout the procedure and did not have any complications as a result of this procedure. MD VERA Quinonez/GAU <ELECTRONICALLY SIGNED> By: Bernard Neal MD 04/23/212032 1009 1024Bernard Neal MD /nt
[2021-04-24 04:00] VITALS: BP 124/67
[2021-04-24 05:03] LABS: HEMOGLOBIN 10.5 gm/dL (12.0-15.0); NUCLEATED RBCS 0 /100WBC; RDW-CV 15.3 % (10.5-14.5)
[2021-04-24 05:04] LABS: ABSOLUTE MONOCYTES 0.6 thou/uL (0.0-1.2); ABSOLUTE NEUTROPHILS 9.3 thou/uL (1.6-8.1); BASOPHILS 0.2 %; EOSINOPHILS 0.1 %; HEMATOCRIT 31.1 % (37.0-47.0); LYMPHOCYTES 16.7 %; MCH 28.5 pg (26.0-34.0); MCHC 33.9 g/dL (28.0-37.0); MCV 84.1 fL (80.0-100.0); MONOCYTES 5.3 %; PLATELET COUNT* 469 thou/uL (150-400); POLYS 77.7 %; RBC 3.69 mil/uL (4.20-5.00)
[2021-04-24 05:09] LABS: CALCIUM 9.4 mg/dL (8.5-10.1); CREATININE 0.9 mg/dL (0.6-1.3); MAGNESIUM 2.3 mg/dL (1.8-2.4); POTASSIUM 3.9 mmol/L (3.5-5.1)
--- NOTE | 2021-04-24 05:09 | NUR ---
ASSUMED PT CARE AT APPROX 1930. PT IS AWAKE AND ORIENTED X4. PT IS NOT IN DISTRESS, NO DESATURATIONS NOTED ON ROOM AIR. PT IS TRACING SR ON THE DUMPSTER DRIVER. PT DENIES PAIN/DISCOMFORT. NO ACUTE CHANGES THIS SHIFT. CALL LIGHT WITHIN REACH. HOURLY ROUNDING DONE FOR PT SAFETY.
[2021-04-24 07:56] VITALS: BP 131/72
--- NOTE | 2021-04-24 11:55 | NUR ---
PLAN OF CARE: PHYSICIAN INFORMS THAT THE PT IS NOW MEDICALLY STABLE. INPT REHAB CONSULTED AND PENDING INSURACE AUTH (SUBMITTED YETERDAY). CM WILL REMAIN AVAILABLE TO ASSIST AND FOLLOW NEEDED.
[2021-04-24 12:00] VITALS: BP 128/68
--- NOTE | 2021-04-24 12:07 | PATH ---
[address] [address] PATHOLOGY RPT PROCEDURE Name: SWATHI VALDES Room: [address] IN [facility].#: [id number] Admission: 04/13/21 Date of : 45 Discharge: Report #: [id number] Path Case #: [id number] Note LCA Accession Number: [id number] TESTS RESULT FLAG UNITS REF RANGE LAB Clinician Provided Cytology Information No. of containers..01 Other (Miscellaneous) Source: LEFT PLEURAL DIAGNOSIS: 01 LEFT PLEURAL INCONCLUSIVE. THIS INTERPRETATION INCLUDES EVALUATION OF A CELL BLOCK. COMMENT, THERE ARE FEW ATYPICAL CELLS PRESENT. ELIE-EP4 IS NEGATIVE AND CALRETININ IS POSITIVE. FAVOR REACTIVE MESOTHELIAL CELLS. SUGGEST CLINICAL CORRELATION AND FOLLOW UP CLINICALLY INDICATED Signed out by: Joaquin Bonilla MD, Pathologist NPI- [id number] Performed by: Joaquin Lozano, Hot Top Liner Helper ([facility]) Gross description: 01 20ML, CLOUDY ORANGE, 1 TP 1 CB /LCS 04/20/2021 0505 Local FLAG LEGEND: L-Low Normal,H-High Normal,LL-Alert Low,HH-Alert High <-Panic Low,>-Panic High,A-Abnormal,AA-Critical Abnormal Performed at: [address] [place] [address] Fercho Bonilla MD, Specimen Comment: A courtesy copy of this report has been sent to [phone] Specimen Comment: Report sent to / DR RANGEL Specimen Comment: A duplicate report has been generated due to demographic updates. Performed at: [address], [place], [place] [id number] MD Fercho Bonilla MD Phone: [phone]
--- NOTE | 2021-04-24 15:10 | NUR ---
THIS BILL CHECKER AGREES WITH TREATMENT NOTE DOCUMENTED BY DIANA FATIMA FOR THIS DAY RANDALL WEIRT
[2021-04-24 16:00] VITALS: BP 156/85
--- NOTE | 2021-04-24 18:56 | NUR ---
Pt up to chair for afternoon following lunch; states she likes being out of bed. Discharge plan is to go to Rehab when insurance authorization completed. VSS. Sandy cifuentes'd this evening per physician order. Will continue to monitor.
[2021-04-24 20:00] VITALS: BP 130/78
[2021-04-24 23:47] VITALS: BP 125/72
--- NOTE | 2021-04-25 04:34 | NUR ---
ASSUMED PT CARE AT APPROX 1930. PT IS AWAKE AND ORIENTED X4. PT IS NOT IN DISTRESS, NO DESATURATIONS NOTED ON ROOM AIR. DENIES PAIN/DISCOMFORT. PT IS TRACING SR ON THE HVAC SHEET METAL INSTALLER HELPER. PT IS ABLE TO VOID AFTER DASILVA CATHETER REMOVAL. NO ACUTE CHANGES THIS SHIFT. CALL LIGHT WITHIN REACH. HOURLY ROUNDING DONE FOR PT SAFETY.
[2021-04-25 08:27] VITALS: BP 135/76
[2021-04-25 09:20] LABS: SOURCE PLEURAL
[2021-04-25 09:22] LABS: SOURCE PLEURAL
[2021-04-25 12:20] VITALS: BP 142/085
--- NOTE | 2021-04-25 16:10 | NUR ---
PLAN OF CARE: REHAB CLOTH PRINTER HELPER INFORMS THAT THE PT'S INSURANCE HAS DECLINED INPT ARU FOR THE PT, BUT RECOMMENDING SNF. CM SPOKE TO THE PT TO DISCUSS THIS, AND PT IN AGREEMENT AND REQUEST SNF AT [facility]. CM CALLED AND FAXED PT'S CLINICAL INFO. CM AWAITING CALL BACK TO DETERMINE IF [facility] IS ABLE TO ACCEPT THE PT. [facility] SNF WILL NEED TO OBTAIN INSURANCE AUTH. CM WILL REMAIN AVAILABLE TO ASSIST AND FOLLOW NEEDED.
[2021-04-25 16:58] VITALS: BP 122/82
[2021-04-25 20:00] VITALS: BP 140/80
[2021-04-26] VITALS: BP 125/81
[2021-04-26 04:00] VITALS: BP 126/65
[2021-04-26 04:30] LABS: HEMOGLOBIN 11.2 gm/dL (12.0-15.0)
[2021-04-26 04:33] LABS: HEMATOCRIT 33.7 % (37.0-47.0); MCH 28.5 pg (26.0-34.0); MCHC 33.3 g/dL (28.0-37.0); MCV 85.6 fL (80.0-100.0); NUCLEATED RBCS 0 /100WBC; PLATELET COUNT* 476 thou/uL (150-400); RBC 3.94 mil/uL (4.20-5.00); RDW-CV 15.6 % (10.5-14.5); WBC 12.8 thou/uL (4.0-11.0)
[2021-04-26 04:54] LABS: ALBUMIN 2.9 g/dL (3.4-5.0); CALCIUM 9.1 mg/dL (8.5-10.1); CREATININE 0.9 mg/dL (0.6-1.3); MAGNESIUM 2.4 mg/dL (1.8-2.4); POTASSIUM 3.5 mmol/L (3.5-5.1); TOTAL BILIRUBIN 0.3 mg/dL (<0.1-1.0); TOTAL PROTEIN 6.6 g/dL (6.4-8.2)
--- NOTE | 2021-04-26 05:24 | NUR ---
ASSUMED PT CARE AT APPROX 1930. PT IS AWAKE AND ORIENTED X4. PT IS NOT IN DISTRESS, NO DESATURATIONS NOTED ON ROOM AIR. PT IS TRACING SR ON THE SUPERVISING BROKER. PT DENIES PAIN/DISCOMFORT. NO ACUTE CHANGES THIS SHIFT. CALL LIGHT WITHIN REACH. HOURLY ROUNDING DONE FOR PT SAFETY. FALL PRECAUTIONS IN PLACE.
[2021-04-26 06:32] LABS: ABSOLUTE LYMPHOCYTES 4.1 thou/uL (0.8-5.3); ABSOLUTE MONOCYTES 0.8 thou/uL (0.0-1.2); ABSOLUTE NEUTROPHILS 7.9 thou/uL (1.6-8.1)
[2021-04-26 06:33] LABS: PLATELET ESTIMATE INCREASED; TOXIC GRANULATION 1+
[2021-04-26 06:35] LABS: POLYCHROMASIA 1+
--- NOTE | 2021-04-26 07:25 | NUR ---
CHANGE OF SHIFT BEDSIDE REPORT GIVEN PATIENT SEEN AT BEDSIDE, IN BED ASLEEP ASSUMED PATIENT CARE
[2021-04-26 08:00] VITALS: BP 157/90
[2021-04-26 12:00] VITALS: BP 126/75
[2021-04-26] MEDS ORDERED: HUMALOG100 UNIT/1 SUBQ (12:20)
[2021-04-26] MEDS ORDERED: SPIRONOLACTONE25 MG PO (12:20)
[2021-04-26] MEDS ORDERED: LASIX 40 MG TAB40 M1 PO (12:20)
--- NOTE | 2021-04-26 13:19 | NUR ---
FOLLOW UP CALL FROM MANDI FROM [facility]. APPROVED FOR SKILLED AT [facility] AUTH #[id number] CM TO CONTINUE TO FOLLOW FOR SAFE D/C PLANNING.
--- NOTE | 2021-04-26 15:35 | NUR ---
CM INFORMED BY [facility] THAT AUTH FOR SNF HAD BEEN RECIEVED. PLAN FOR THE PT TO D/C TODAY, AND W/C VAN TRANSPORT IS ARRANGED FOR [id number]. PT INFORMED, IN AGREEMENT, AND TO CONTACT HER SON TO INFORM HIM. RN INFORMED OF THE PT'S TIME OF TRANSPORT AND WHERE TO CALL REPORT. RN IN AGREEMENT. CM WILL REMAIN AVAILABLE TO ASSIST AND FOLLOW NEEDED. [facility] PHONE: [phone] FAX: [phone]
--- NOTE | 2021-04-26 16:06 | PATH ---
[address] [address] PATHOLOGY RPT PROCEDURE Name: SWATHI VALDES Room: [address] IN [facility]#: [id number] Admission: 04/13/21 Date of : 45 Discharge: Report #: [id number] Path Case #: [id number] Note [facility] Accession Number: [id number] TESTS RESULT FLAG UNITS REF RANGE LAB Clinician Provided Cytology Information No. of containers..01 Other (Miscellaneous) Source: RLL WASH DIAGNOSIS: 02 RLL WASH NEGATIVE FOR MALIGNANT CELLS. MANY BRONCHIAL EPITHELIAL CELLS, PULMONARY MACROPHAGES AND SQUAMOUS CELLS AND FEW INFLAMMATORY CELLS ARE PRESENT. Signed out by: 02 Nav Patton MD, Pathologist NPI- [id number] Performed by: 01 Qasim Lozano, Bottom Filler ([facility]) Gross description: 01 4ML, CLEAR COLORLESS, 1 TP /LCS 04/25/2021 0155 Local FLAG LEGEND: L-Low Normal,H-High Normal,LL-Alert Low,HH-Alert High <-Panic Low,>-Panic High,A-Abnormal,AA-Critical Abnormal Performed at: [address] [place] [address] Fercho Bonilla MD, [address] [place] [phone] Nav Patton MD, Specimen Comment: A courtesy copy of this report has been sent to [phone], [phone] Specimen Comment: [phone] Specimen Comment: Report sent to / DR MENDIOLA Specimen Comment: A duplicate report has been generated due to demographic updates. Performed at: [address], [place], [place] [id number] MD Fercho Bonilla MD Phone: [phone]
--- NOTE | 2021-04-26 18:15 | NUR ---
discharge to [facility] snf iv and heart monitor removed personal belongings returned patient assisted out via [facility] to [facility] van attemped to contact [facility] to give report but no answer of phone son notified of dc
--- NOTE | 2021-04-27 14:07 | PATH ---
[address] [address] PATHOLOGY RPT PROCEDURE Name: SWATHI VALDES Room: [address]#: [id number] Admission: 04/13/21 Date of : 45 Discharge: 04/26/21 Report #: [id number] Path Case #: [id number] Note [facility] Accession Number: [id number] TESTS RESULT FLAG UNITS REF RANGE LAB Clinician Provided Cytology Information No. of containers..01 Other (Miscellaneous) Source: LLL WASH DIAGNOSIS: 02 LLL WASH NEGATIVE FOR MALIGNANT CELLS. MANY BRONCHIAL EPITHELIAL CELLS, PULMONARY MACROPHAGES AND SQUAMOUS CELLS AND FEW INFLAMMATORY CELLS ARE PRESENT. Signed out by: 02 Nav Patton MD, Pathologist NPI- [id number] Performed by: Qasim Lozano, Renewable Energy Project Manager ([facility]) Gross description: 01 1ML, CLEAR COLORLESS, 1 TP /LCS 04/25/2021 0159 Local FLAG LEGEND: L-Low Normal,H-High Normal,LL-Alert Low,HH-Alert High <-Panic Low,>-Panic High,A-Abnormal,AA-Critical Abnormal Performed at: [address] [place] [address] Fercho Bonilla MD, [address] [place] [phone] Nav Patton MD, Specimen Comment: A courtesy copy of this report has been sent to [phone] Specimen Comment: [phone] Specimen Comment: Report sent to / DR MENDIOLA Specimen Comment: A duplicate report has been generated due to demographic updates. Performed at: [address], [place], [place] [id number] MD Ferhco Bonilla MD Phone: [phone]
== END 2021-04-26 18:00 | DRG 177 ==
LOC: M.ERS 15:54 → M.TBA-ER 18:31 → M.ERS 18:31 → M.TBA-ER 19:24 → M.2W 19:24
PROVIDERS: Emergency Medicine; Family Medicine; Internal Medicine; Internal Medicine Critical Care Medicine; Pediatrics; Radiology Diagnostic Radiology; ADMIT Internal Medicine; ATTEND Internal Medicine
PROC: 0W9B3ZZ Drainage of Left Pleural Cavity, Percutaneous Approach (ICD-10-PCS; principal; 2021-04-14)
PROC: 5A09357 Assistance with Respiratory Ventilation, Less than 24 Consecutive Hours, Continuous Positive Airway Pressure (ICD-10-PCS; principal; 2021-04-14)
PROC: 0W993ZZ Drainage of Right Pleural Cavity, Percutaneous Approach (ICD-10-PCS; 2021-04-17)
PROC: 0W9B3ZZ Drainage of Left Pleural Cavity, Percutaneous Approach (ICD-10-PCS; 2021-04-19)
PROC: 0B9J8ZZ Drainage of Left Lower Lung Lobe, Via Natural or Artificial Opening Endoscopic (ICD-10-PCS; 2021-04-23)
PROC: 0B9C8ZZ Drainage of Right Upper Lung Lobe, Via Natural or Artificial Opening Endoscopic (ICD-10-PCS; 2021-04-23)
DX: J15.6 Pneumonia due to other Gram-negative bacteria (principal); J96.01 Acute respiratory failure with hypoxia; J91.8 Pleural effusion in other conditions classified elsewhere; J98.11 Atelectasis; J98.19 Other pulmonary collapse; I48.20 Chronic atrial fibrillation, unspecified; E87.1 Hypo-osmolality and hyponatremia; I31.3 Pericardial effusion (noninflammatory); I50.30 Unspecified diastolic (congestive) heart failure; Z20.822 Contact with and (suspected) exposure to COVID-19; E11.9 Type 2 diabetes mellitus without complications; I11.0 Hypertensive heart disease with heart failure; E78.5 Hyperlipidemia, unspecified; D64.9 Anemia, unspecified; Z90.710 Acquired absence of both cervix and uterus; Z88.0 Allergy status to penicillin

== ENCOUNTER → 2021-05-17 | Outpatient (CLI) | payer OTHER ==
[~2021-05-17] MED LIST: HUMALOG100 UNIT/1 SUBQ; LASIX 40 MG TAB40 M1 PO; LISINOPRIL5 MG; SIMVASTATIN80 MG; SPIRONOLACTONE25 MG PO; STEGLATRO15 MG
== END ==
LOC: M.RAD 14:50
PROVIDERS: ATTEND Internal Medicine Critical Care Medicine
DX: J90 Pleural effusion, not elsewhere classified (principal); K44.9 Diaphragmatic hernia without obstruction or gangrene; R91.8 Other nonspecific abnormal finding of lung field; I70.0 Atherosclerosis of aorta

== ENCOUNTER → 2021-06-19 | Outpatient (CLI) | payer OTHER | LOC: M.RAD 14:00 | PROVIDERS: ATTEND Internal Medicine Critical Care Medicine | DX: J90 Pleural effusion, not elsewhere classified (principal); R91.8 Other nonspecific abnormal finding of lung field; K44.9 Diaphragmatic hernia without obstruction or gangrene ==

== ENCOUNTER → 2021-08-16 | Outpatient (CLI) | payer OTHER | LOC: M.RAD 14:27 | PROVIDERS: ATTEND Internal Medicine Critical Care Medicine | DX: J90 Pleural effusion, not elsewhere classified (principal); R06.02 Shortness of breath ==